=== PATIENT | female | born 1980 | race African-American/Black ===

== ENCOUNTER 2017-02-28 03:27 | Emergency (ER) | payer SELFPAY ==
[2017-02-28 03:33] VITALS: BP 137/76
[2017-02-28] MEDS ORDERED: PENICILLIN V POTASSIUM 500 MG TABLET PO ONE (03:57)
[2017-02-28] MEDS ORDERED: LIDOCAINE 2% VISCOUS SOLN 20 ML UDCUP PO ONE (03:57)
[2017-02-28] MEDS ORDERED: ACETAMINOPHEN 325 MG TABLET PO ONE (03:57)
--- NOTE | 2017-02-28 04:01 | ER Document Report ---
ED Oral Problem - General Chief Complaint: Toothache Stated Complaint: TOOTHACHE Time Seen by Provider: 02/28/17 03:41 Mode of Arrival: Ambulatory Information source: Patient Notes: 37-year-old female presents to ED for dental pain in the lower left jaw. Tooth #17 and 18 are broken off at the jawline and tooth #20 has a large cavity that is the tooth that she states is now hurting. She does have gingivitis around all 3 of these teeth in tooth #19 is missing. She states that she went to the dentist yesterday and they told her she can not have the tooth pulled because she was 12 weeks . She denies any fever. TRAVEL OUTSIDE OF THE [place] IN LAST 30 DAYS: No - HPI Patient complains to provider of: Jaw pain, Toothache Onset: Other - States the pain is been there for a while but she was to have it pulled yesterday but the dentist refused. 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 Lives with: Family - Her 5 children oldest of which is 16 youngest which is 10 Family History: DM, Malignancy Patient has suicidal ideation: No Patient has homicidal ideation: No - Past Medical History Cardiac Medical History: Reports: None Pulmonary Medical History: Reports: None EENT Medical History: Reports: None Neurological Medical History: Reports: None Endocrine Medical History: Reports: None Renal/ Medical History: Reports: None Malignancy Medical History: Reports: None GI Medical History: Reports: None Musculoskeltal Medical History: Reports None Skin Medical History: Reports None Psychiatric Medical History: Reports: None Traumatic Medical History: Reports: None Infectious Medical History: Reports: None Past Surgical History: Reports: Hx Section - Immunizations Hx Diphtheria, Pertussis, Tetanus Vaccination: Yes Review of Systems - Review of Systems Constitutional: No symptoms reported EENT: Mouth pain, Dental problem Cardiovascular: No symptoms reported Respiratory: No symptoms reported Gastrointestinal: No symptoms reported Genitourinary: No symptoms reported Female Genitourinary: No symptoms reported Musculoskeletal: No symptoms reported Skin: No symptoms reported Hematologic/Lymphatic: No symptoms reported Neurological/Psychological: No symptoms reported -: Yes All other systems reviewed and negative Physical Exam - Vital signs Vitals: Temp Pulse Resp BP Pulse Ox 98.6 F 82 18 137/76 H 100 02/28/17 03:02/28/17 03:02/28/17 03:02/28/17 03:02/28/17 03:29 Interpretation: Normal - General General appearance: Appears well, Alert - HEENT Head: Normocephalic, Atraumatic Eyes: Normal Pupils: PERRL Ears: Normal External canal: Normal Tympanic membrane: Normal Sinus: Normal Nasal: Normal Mouth/Lips: Caries Mucous membranes: Normal Teeth diagram: 1 - Tooth #17 and 18 of broken off at the jawline tooth #19 is missing tooth # 20 has a very large cavity with part of the tooth missing. Pharynx: Normal Neck: Normal - Respiratory Respiratory status: No respiratory distress Chest status: Nontender Breath sounds: Normal Chest palpation: Normal - Cardiovascular Rhythm: Regular Heart sounds: Normal auscultation Murmur: No - Abdominal Inspection: Normal Distension: No distension Bowel sounds: Normal Tenderness: Nontender Organomegaly: No organomegaly - Back Back: Normal, Nontender - Extremities General upper extremity: Normal inspection, Nontender, Normal color, Normal ROM , Normal temperature General lower extremity: Normal inspection, Nontender, Normal color, Normal ROM , Normal temperature, Normal weight bearing. No: Kathy's sign - Neurological Neuro grossly intact: Yes Cognition: Normal Orientation: AAOx4 Brayden Coma Scale Eye Opening: Spontaneous [place] Coma Scale Verbal: Oriented [place] Coma Scale Motor: Obeys Commands [place] Coma Scale Total: 15 Speech: Normal Motor strength normal: LUE, RUE, LLE, RLE Sensory: Normal - Psychological Associated symptoms: Normal affect, Normal mood - Skin Skin Temperature: Warm Skin Moisture: Dry Skin Color: Normal Course - Re-evaluation Re-evalutation: 02/28/17 04:43 Treated with Penicillin VK and viscous lidocaine and discharged home with prescription for Penicillin VK and instructed to follow-up with her EDUCATION REPORTER to find out why the dentist could not pull her tooth. - Vital Signs Vital signs: Temp Pulse Resp BP Pulse Ox 98.6 F 82 18 137/76 H 100 02/28/17 03:29 02/28/17 03:29 02/28/17 03:29 02/28/17 03:02/28/17 03:29 Discharge - Discharge Clinical Impression: Pain due to dental caries Condition: Stable Disposition: HOME, SELF-CARE Additional Instructions: TOOTHACHE: Your pain is due to dental decay. The tooth must be repaired in order for you to feel better. You will, therefore, be referred to a dentist. We do not have dentists on the staff at [facility]. Severe swelling or drainage around a tooth usually means a dental abscess. This also requires evaluation and treatment by the dentist, but antibiotics may be prescribed while awaiting dental treatment. You should be rechecked immediately if you develop major swelling of the face, increasing pain, a lump in the jaw or gums, headache, difficulty swallowing, or fever. PENICILLIN V K: You have been given a prescription for Penicillin VK. Your physician has determined that this is the best antibiotic for your condition. Pen VK can be taken with meals, however more of the antibiotic gets into the bloodstream if it's taken on an empty stomach. Penicillin usually has no side effects. However, allergy to penicillins is common. If you have had an allergic reaction to any drug of the penicillin family, you should never take any other penicillin. Notify your doctor at once if you develop hives, itching, swelling, faintness, or shortness of breath. Use lidocaine as explained to you every 4 hours for pain. Call your EDUCATION REPORTER on Thursday to find out if there is a reason why your tooth cannot be pulled by a dentist while you are . They state there is no reason to follow-up with the dentist to get the tooth pulled. FOLLOW-UP CARE: You have been referred for follow-up care to the dentists listed below. Call the dentists office for an appointment as you were instructed or within the next two days. If you experience worsening or a significant change in your symptoms, notify the physician immediately or return to the Emergency Department at any time for re-evaluation. [facility] [address] [place], [place] Black mornings, by appointment [facility] [address] [place] [address] [facility] [address] [facility] [address] [facility] [address] [email or web address] [address] [place] [address] Thursday- 8:00am to 5:00 pm Will see patients from other [facility]. Charges based on income and family size and accepts Medicare, Medicaid, and Insurances Will pull molars [facility] [address] Hours of Operation 8:00 am - 4:30 pm weekdays The following dental offices accept Medicaid: [facility] Dr. Weber Dr. Lambert Dr. Otero Dr. Garcia Julian Schultz [place], and Guido oral surgery Dr. Hernandez ([place]) Dr. Alvarez ([place]) [facility] Drs. Wells and Fito ([place]) Dr. Ortega ([place]) [facility] Dr. Pichardo ([place]) Drs. Hennessy and ([place]) Medicaid Care Line Prescriptions: Penicillin V Potassium [Penicillin Vk 500 mg Tablet] 500 mg PO BID #20 tablet Forms: Elevated Blood Pressure, Smoking Cessation Education, Return to Work Referrals: GEREMIAS MIGUEL MD [Primary Care Provider] - Follow up as needed
== END 2017-02-28 04:14 | disposition home or self-care (01) ==
LOC: ER 03:27
DX: K02.9 Dental caries, unspecified (principal); K08.89 Other specified disorders of teeth and supporting structures; R68.84 Jaw pain
CPT/HCPCS: 99282; J3490

== ENCOUNTER → 2017-04-27 | Outpatient (CLI) | payer SELFPAY ==
--- NOTE | 2017-04-27 15:43 | RADIOLOGY REPORT (SQ) ---
EXAM DESCRIPTION: U/S OB 14+ TRNABD 1GES W/O DOP COMPLETED DATE/TIME: 04/27/2017 3:02 pm REASON FOR STUDY: ENCOUNTER FOR SUPERVISION OF OTHER NORMAL , SECOND TRIMESTER Z34.82 ENCO UNTER FOR SUPRVSN OF NORMAL , SECOND TRI COMPARISON: None. TECHNIQUE: Static and Dynamic grayscale imaging performed of gravid uterus using transabdominal appr oach. Additional selected color Doppler and spectral images recorded. All stored on PACS. LIMITATIONS: None. FINDINGS: EGA: 19 weeks 6 days RITA: 09/15/2017 EFW: 301 grams PERCENTILE: Not calculated ISAURO: Largest pocket 5.1 cm PLACENTA: Posterior, grade 1 with marginal previa. The inferior placental edge abuts the internal c ervical os. Recommend follow-up scanning sometime later in the 2nd trimester to exclude placenta pre via. PRESENTATION: Variable ANATOMY: HEART RATE: 152 beats per minute. FOUR CHAMBER HEART: Visualized. THREE VESSEL CORD: Yes. CORD INSERTION: Visualized. KIDNEYS AND BLADDER: Visualized. Appear normal. STOMACH: Visualized. Appears normal. SPINE: Normal as visualized. BRAIN AND LATERAL VENTRICLES: Visualized. Appear normal. OTHER: No other significant finding. MATERNAL ADNEXA: Maternal ovaries not visualized. CERVICAL LENGTH: 3.5 cm Closed. OTHER: No other significant finding. IMPRESSION: LIVING INTRAUTERINE . ESTIMATED GESTATIONAL AGE 19 weeks 6 days Low-lying posterior placenta abuts the internal cervical os. Recommend follow-up scanning sometime l ater in the 2nd trimester to exclude placenta previa Trimester of : Second trimester - 13 weeks 1 day to 27 weeks 6 days. TECHNICAL DOCUMENTATION: JOB ID: [id number] [employer]- All Rights Reserved
== END ==
LOC: RAD 14:15
PROVIDERS: ATTEND Nurse Practitioner Women's Health
DX: Z34.82 Encounter for supervision of other normal pregnancy, second trimester (principal)
CPT/HCPCS: 76805

== ENCOUNTER 2017-08-24 12:55 | Inpatient (IN) | payer MEDICAID ==
[2017-08-24] MEDS ORDERED: CITRIC ACID/SODIUM CITRATE ORAL SOLN 15 ML UDCUP ONE (13:41)
[2017-08-24] MEDS ORDERED: CEFAZOLIN 2 GM/D5W RTU 2 GM/50 ML RTUPB IV ONE (13:41)
[2017-08-24] MEDS ORDERED: OXYTOCIN/NORMAL SALINE 20 UNIT/1,000 ML RTUINJ ONE (13:51)
[2017-08-24] MEDS ORDERED: OXYTOCIN 10 UNIT/ML VIAL ONE (13:52)
[2017-08-24] MEDS ORDERED: FENTANYL CITRATE INJ/PF 100 MCG/2 ML AMPUL ONE ×2 (13:52→16:32)
[2017-08-24] MEDS ORDERED: EPHEDRINE SULFATE INJ 50 MG/1 ML AMPULE ONE (13:52)
[2017-08-24] MEDS ORDERED: MIDAZOLAM 2 MG/2 ML INJ ONE (13:53)
[2017-08-24] MEDS ORDERED: DIPHENHYDRAMINE HCL 50 MG/ML VIAL IV PRN (14:36)
[2017-08-24] MEDS ORDERED: MORPHINE SULFATE 10 MG/ML INJ IV PRN (14:36)
[2017-08-24] MEDS ORDERED: PROMETHAZINE HCL INJ 25 MG/1 ML VIAL IV PRN ×2 (14:36)
[2017-08-24] MEDS ORDERED: ONDANSETRON HCL INJ/PF 4 MG/2 ML SDV IV PRN (14:36)
[2017-08-24] MEDS ORDERED: MEPERIDINE HCL/PF INJ 25 MG/1 ML DISP.SYRIN IV PRN (14:36)
[2017-08-24] MEDS ORDERED: FENTANYL CITRATE INJ/PF 100 MCG/2 ML AMPUL IV PRN ×2 (14:36)
[2017-08-24] MEDS ORDERED: ONDANSETRON HCL INJ/PF 4 MG/2 ML SDV ONE (15:06)
[2017-08-24] MEDS ORDERED: DEXAMETHASONE SOD PHOSPHATE INJ 4 MG/1 ML VIAL ONE (15:06)
[2017-08-24] MEDS ORDERED: PHENYLEPHRINE HCL INJ/PF 10 MG/1 ML SDV ONE (15:06)
[2017-08-24] MEDS ORDERED: METOCLOPRAMIDE HCL INJ/PF 10 MG/2 ML SDV ONE (15:06)
[2017-08-24] MEDS ORDERED: KETOROLAC TROMETHAMINE 60 MG/2 ML SDV ONE (15:06)
[2017-08-24] MEDS ORDERED: ACETAMINOPHEN 100 ML IV ONE (15:07)
--- NOTE | 2017-08-24 15:29 | OPERATIVE REPORT E ---
Operative Report NAME: YVES NIELSON : 1980 AGE: 37Y DATE OF SURGERY: 08/24/2017 ROOM: LR200 PREOPERATIVE DIAGNOSES: 1. IUP at 37 weeks and 0 days. 2. Poor care. 3. Previous x2. 4. Nonreassuring heart tones. 5. Undesired fertility. 6. HIV positive. POSTOPERATIVE DIAGNOSES: 1. IUP at 37 weeks and 0 days. 2. Poor care. 3. Previous x2. 4. Nonreassuring heart tones. 5. Undesired fertility. 6. HIV positive. PROCEDURE: Low transverse hysterotomy section with [place] tubal ligation. SURGEON: DULCE EUBANKS M.D. ANESTHESIA: Dr. Mcclain with a spinal. FINDINGS: A female infant in cephalic presentation with Apgars of 6 and 8. Weight 5 pounds 1 ounce. COMPLICATIONS: None. ESTIMATED BLOOD LOSS: 600 mL. SPECIMENS REMOVED: Bilateral fallopian tubes. PROCEDURE IN DETAIL: The patient was taken to the operating room and prepared and draped in a normal sterile fashion in the supine position with a leftward tilt. A transverse skin incision was made with the scalpel and was carried through to the underlying layer of fascia with the same scalpel. The fascia was then dissected from the rectus muscle sharply. The rectus muscle was divided and the peritoneal cavity was entered bluntly with good visualization of the bladder and the uterus. The bladder blade was inserted and the hysterotomy was nicked with a scalpel and extended laterally with surgeon finger fracture. The infant was then delivered atraumatically. The nose and mouth were suctioned with a suction bulb and the cord was clamped and cut and the was handed off to awaiting pediatricians. Cord blood was collected. The placenta was removed manually. The uterus was exteriorized and cleared of clots and debris. The hysterotomy was closed with 0 Monocryl in a running-locked fashion and a second layer of the same suture was used in an imbricating fashion to ensure hemostasis. Attention was then turned to the fallopian tubes for the tubal ligation where the right fallopian tube was grasped with a Nikko and the mesosalpinx was divided. The section of fallopian tube measuring approximately 3 cm was tied off with 2 pieces of 2-0 chromic. The intermediate section was then transected with Metzenbaum and the pedicles were made hemostatic with the Bovie. This was repeated on the left fallopian tube without any difficulty. The uterus was then returned to the abdomen and the pedicles were reinspected and found to be hemostatic and intact. The rectus muscle and peritoneum were reapproximated with a mattress stitch of 2-0 chromic. The fascia was closed with 0 Vicryl. The subcutaneous layer was closed with plain catgut and the skin was closed with 4-0 Vicryl. Patient tolerated the procedure well. Sponge, lap, and needle counts were correct x2, and the patient was taken to recovery in stable condition. DICTATING PHYSICIAN: DULCE EUBANKS M.D. [id number] PHY#: [id number] ID: [id number] JOB#: [id number] ACCT: [id number] cc:DULCE EUBANKS M.D. >
[2017-08-24 16:06] LABS: APPEARANCE,URINE SLIGHTLY-CLOUDY; BILIRUBIN,URINE NEGATIVE (NEGATIVE); COLOR,URINE YELLOW; GLUCOSE, URINE NEGATIVE (NEGATIVE); KETONES,URINE NEGATIVE (NEGATIVE); LEUKOCYTE ESTERASE,URINE LARGE (NEGATIVE); NITRITE,URINE NEGATIVE (NEGATIVE); PROTEIN,URINE NEGATIVE (NEGATIVE); URINE SPECIFIC GRAVITY 1.013; UROBILINOGEN,URINE NEGATIVE mg/dL (<2.0)
[2017-08-24 16:12] LABS: URINE AMPHETAMINES SCREEN NEGATIVE; URINE BARBITURATES SCREEN NEGATIVE; URINE COCAINE SCREEN NEGATIVE; URINE MARIJUANA (THC) SCREEN NEGATIVE; URINE METHADONE SCREEN NEGATIVE; URINE PHENCYCLIDINE SCREEN NEGATIVE
[2017-08-24] MEDS ORDERED: NORMAL SALINE 250 ML IV PRN (16:14)
[2017-08-24 16:26] LABS: URINE BENZODIAZEPINES SCREEN NEGATIVE
[2017-08-24] MEDS: FENTANYL CITRATE INJ/PF 100 MCG/2 ML AMPUL IV PRN ×2 (16:36→16:58)
--- NOTE | 2017-08-24 17:10 | Admission Physical ---
Datetime Report Generated by CPN: 08/24/2017 17:10 CURRENT ADMISSION Chief Complaint: Uterine Contractions; Other Chief Complaint Other: SOB Indication for Induction: Not Applicable Indication for Induction: Term, Intrauterine ; Active Labor; Intact Membranes Admit Impression- Other: HIV+ Admit Plan: Admit to Unit ALLERGIES Medication Allergies: No Medication Allergies: No Known Allergies (08/24/2017) Latex: No Latex Allergies OBSTETRICAL HISTORY EDC: 09/14/2017 00:00 : 8 Para: 5 Term: 4 : 1 SAB: 0 IAB: 2 Ectopic: 0 Livin Cesareans: 2 VBACs: 0 Multiple Births: 0 Gestational Diabetes: No Rh Sensitization: No Incompetent Cervix: No SUZIE: No Infertility: No ART Treatment: No Uterine Anomaly: No IUGR: No Hx Previous C/S: Yes Macrosomia: No Hx Loss/Stillborn: No PIH: No Hx : No Placenta Previa/Abruption: Yes Depression/PP Depression: No PTL/PROM: No Post Hemorrhage: No Current Procedures: Ultrasound Obstetrical History Comments: 3 vaginal deliveries, 2 c/sections, 2 iebs, pt cannot remember dates SEE RECORDS Alcohol: No Marijuana : No Cocaine: No Other Illicit Drugs: No Cigarettes: Former Smoker. 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 Surgery: No Heart Disease: No Hosp/Surgery: Yes Autoimmune Disorder: No Anesthetic Complications: No Kidney Disease: No Abnormal Pap Smear: Yes Neuro/Epilepsy: No Psychiatric Disorders: No Other Medical Diseases: No Hepatitis/Liver Disease: No Significant Family History: No Varicosities/Phlebitis: No Trauma/Violence : No Thyroid Dysfunction: No Medical History Comments: , abnl paps INFECTIOUS HISTORY Gonorrhea: No Genital Herpes: No Chlamydia: No Tuberculosis: No Syphilis: No Hepatitis: No HIV/AIDS Exposure: Yes Rash or Viral Illness: No HPV: No PHYSICAL EXAM General: Normal HEENT: Deferred Neurologic: Deferred Thyroid: Normal Heart: Normal Lungs: Normal Breast: Deferred Back: Normal Abdomen: Normal Genitourinary Exam: Deferred Extremities: Deferred DTRs: Deferred Pelvic Type: Not Done Physical Exam Comments: Seen at [facility] for some care and Infectious Disease at [facility], seen by Care Team HIV +, taking anti viral everyday No records, states she is healthy Last viral load was normal Hx CS x 2 and 3 vaginal deliveries Vital Signs: Reviewed FETUS A EGA: 37.0 Monitoring: External US FHR- Baseline: 120 Variability: Minimal - Undetectable to <=5bpm Accelerations: Absent Decelerations: Late; Variable Admit Comment: Admited for emergency CS for Hx 2 C/S, + uc's, Pulse Ox 100%, intolerance + HIV, seen by Dr Bustos, POC discussed and pt consents, signed consents to get records from Care Team in [facility] BT NKA per pt Care Team notified to get records from [facility] and to call labor and delivery RANULFO Patient back for emergency C/S PLANS FOR LABOR AND DELIVERY Labor and Delivery: None Pain Management: Spinal Feeding Preference: Formula Benefit of Breast Feed Discussed: Yes Circumcision: N/A INFORMED CONSENT Assignment: An Horta MD Signature: with User ID: Michael : with User ID: Michael
[2017-08-24 17:21] LABS: MEAN CORPUSCULAR HEMOGLOBIN 34.6 pg (27.0-33.4); MEAN CORPUSCULAR HGB CONC 31.4 g/dL (32.0-36.0); MEAN CORPUSCULAR VOLUME 110 fl (80-97); PLATELET COUNT 234 10^3/uL (150-450); RED BLOOD COUNT 1.09 10^6/uL (3.72-5.28); RED CELL DISTRIBUTION WIDTH 20.3 % (11.5-14.0); WHITE BLOOD COUNT 19.9 10^3/uL (4.0-10.5)
[2017-08-24 17:31] LABS: HEMOGLOBIN 3.8 g/dL (12.0-15.5)
[2017-08-24 17:35] LABS: ABSOLUTE LYMPHOCYTES# (MANUAL) 1.4 10^3/uL (0.5-4.7); ABSOLUTE NEUTROPHILS# (MANUAL) 18.5 10^3/uL (1.7-8.2); BAND NEUTROPHILS % (MANUAL) 2 % (3-5); BASOPHILS % (MANUAL) 0 % (0-2); EOSINOPHILS % (MANUAL) 0 % (0-6); LYMPHOCYTES % (MANUAL) 7 % (13-45); MONOCYTES % (MANUAL) 0 % (3-13); NUCLEATED RED BLOOD CELLS 6 /100 WBC (0); SEGMENTED NEUTROPHILS % (MAN) 91 % (42-78); TOTAL CELLS COUNTED 100
[2017-08-24 17:37] LABS: ANISOCYTOSIS 2+; HYPOCHROMASIA SLIGHT; PLATELET COMMENT ADEQUATE; POLYCHROMASIA 1+
--- NOTE | 2017-08-24 17:41 | Delivery Summary ---
Del Sum A-C Datetime Report Generated by CPN: 08/24/2017 17:41 DELIVERY PERSONNEL DELIVERY PERSONNEL: [id number] Delivery Doctor:: An Horta MD Anesthesiologist:: Rell Mcclain MD PIG MACHINE OPERATOR:: Nunu Sanchez CRNA Labor and Delivery Nurse:: Ashlee Johns RNbuilding manager Nurse:: Rose Car RN Neonatal Nurse Practitioner:: ARTEM [place] Nursery Nurse:: Renée Simmons RN Javascript Developer/ASSISTANT MANAGER OF OPERATIONS: Kaylan [place] CST Javascript Developer/ASSISTANT MANAGER OF OPERATIONS: Denise Rodriges, ST Additional Personnel: : Alina Brantley RNC MATERNAL INFORMATION Delivery Anesthesia: Spinal Medications After Delivery: Pitocin Bolus-Please Comment; Pitocin Drip 20 Units/1000ml NSS Estimated Blood Loss (ml): 600 Maternal Complications: Other Other Maternal Complications: Maternal Tachycardia HIV+ LABOR SUMMARY EDC: 09/14/2017 00:00 No. Babies in Womb: 1 Attempted: No Labor Anesthesia: None LABOR INFORMATION Reason for Induction: Not Applicable Oxytocin: N/A Group B Beta Strep: unknown Antibiotics # of Doses: 0 Steroids Given: None Reason Steroids Not Administered: Not Applicable MEMBRANES Membranes Rupture Method: Artificial Rupture of Membranes: 08/24/2017 14:20 Length of Rupture (hr): 0.02 Amniotic Fluid Color: Clear Amniotic Fluid Amount: Moderate Amniotic Fluid Odor: Normal STAGES OF LABOR Stage 3 hr: 0 Stage 3 min: 1 VAGINAL DELIVERY Episiotomy: None Laceration #1: None Laceration Extension #1: N/A Sponge Count Correct: N/A CSECTION DELIVERY Primary Indication: Nonreassuring Status Secondary Indication: Repeat Elective CSection Urgency: Non-Scheduled CSection Incidence: Repeat Labor: No Labor Elective: Nonelective CSection Incision: Lower Uterine Transverse BABY A INFORMATION Delivery Date/Time: 08/24/2017 14:21 Method of Delivery: Born in Route : No : N/A Forceps: N/A Vacuum Extraction: N/A Shoulder Dystocia : No PRESENTATION/POSITION BABY A Presentation: Cephalic Cephalic Presentation: Vertex Breech Presentation: N/A PLACENTA INFORMATION BABY A Placenta Delivery Time : 08/24/2017 14:22 Placenta Method of Delivery: Manual Removal Placenta Status: Delivered SCORES BABY A Heart Rate 1 min: >100 bpm Resp Effort 1 min: Slow, Irregular Reflex Irritability 1 min: Cough or Sneeze or Pulls Away Muscle Tone 1 min: Some Flexion of Extremities Color 1 min: Blue/Pale Resuscitation Effort 1 min: Tactile Stimulation; Oxygen; PPV/NCPAP SCORE 1 MIN: 6 Heart Rate 5 min: >100 bpm Resp Effort 5 min: Good Cry Reflex Irritability 5 min: Cough or Sneeze or Pulls Away Muscle Tone 5 min: Some Flexion of Extremities Color 5 min: Body [place] View, Extremities Blue Resuscitation Effort 5 min: PPV/NCPAP SCORE 5 MIN: 8 Resuscitation Effort 10 min: N/A INFANT INFORMATION BABY A Gestational Age at Delivery: 37.0 Gestational Status: Early Term- 37- 38.6 Weeks Infant Outcome : Liveborn Infant Condition : Stable Sex: Female IDENTIFICATION BABY A Verification Date/Time: 08/24/2017 14:21 ID Band Number: [id number] Mother's Name Verified: Yes RN Verifying : SALIMA Fritz Additional Verifying Personnel: SALIMA Andres WEIGHT/LENGTH BABY A Birthweight (gm): 2310 Weight (lb): 5 Weight (oz): 1 Infant Length (in): 17.75 Infant Length (cm): 45.09 CORD INFORMATION BABY A No. Cord Vessels: 3 Nuchal Cord : N/A Cord Blood Taken: Yes-For Eval (Mom's Blood Type - or O+) Suction: Mouth; Nose ASSESSMENT BABY A Complications: Multiple Late Decels Physical Findings at Delivery: Within Normal Limits Infant Respirations: Sternal Retractions Outer Diameter Grinder/ALS Called : No Care By: Skip Simmons RN/Juan MCGILL Transferred To: NICU
[2017-08-24] MEDS ORDERED: DIPHENHYDRAMINE HCL 25 MG CAPSULE PO PRN (18:00)
[2017-08-24] MEDS ORDERED: FUROSEMIDE INJ/PF 20 MG/2 ML SDV IV PRN (18:00)
[2017-08-24] MEDS ORDERED: DIPHENHYDRAMINE HCL 25 MG CAPSULE ONE (18:05)
[2017-08-24 18:06] LABS: RUBELLA IGG ANTIBODY 5.42 IU/mL
[2017-08-24 18:09] LABS: RUBELLA INTERPRETATION NEGATIVE
--- NOTE | 2017-08-24 18:38 | EKG REPORT ---
SEVERITY:- ABNORMAL ECG - SINUS TACHYCARDIA LVH WITH SECONDARY REPOLARIZATION ABNORMALITY : Confirmed by: Gaviota Cobb 24-Aug-2017 18:37:52
[2017-08-24] MEDS ORDERED: OXYCODONE-ACETAMINOPHEN 5-325 MG TABLET PO PRN ×2 (22:10→22:11)
[2017-08-24] MEDS ORDERED: ACETAMINOPHEN INJ/PF 1000 MG/100 ML SDV IV ONE (22:15)
[2017-08-24] MEDS ORDERED: KETOROLAC TROMETHAMINE INJ/PF 30 MG/1 ML SDV IV ONE (22:15)
[2017-08-24] MEDS: MORPHINE SULFATE 10 MG/ML INJ IV PRN (22:38)
[2017-08-25] MEDS: MORPHINE SULFATE 10 MG/ML INJ IV PRN (02:57)
[2017-08-25] MEDS ORDERED: FUROSEMIDE INJ/PF 20 MG/2 ML SDV IV PRN (03:32)
[2017-08-25] MEDS: KETOROLAC TROMETHAMINE INJ/PF 30 MG/1 ML SDV IV SCH ×2 (06:30→13:13)
[2017-08-25 08:38] LABS: HEMATOCRIT 24.3 % (36.0-47.0); MEAN CORPUSCULAR HEMOGLOBIN 31.9 pg (27.0-33.4); MEAN CORPUSCULAR HGB CONC 33.7 g/dL (32.0-36.0); PLATELET COUNT 202 10^3/uL (150-450); RED BLOOD COUNT 2.57 10^6/uL (3.72-5.28); RED CELL DISTRIBUTION WIDTH 18.3 % (11.5-14.0)
--- NOTE | 2017-08-25 08:47 | PDOC PROGRESS REPORT ---
Subjective Progress Note for:: 08/25/17 Subjective:: pt states she feels better and is passing gas Reason For Visit: LABOR CHECK Physical Exam - Physical Exam Vital Signs: Temp Pulse Resp BP Pulse Ox 98.4 F 71 16 150/80 H 100 08/25/17 08:11 08/25/17 08:11 08/25/17 08:11 08/25/17 08:11 08/25/17 08:11 Intake & Output 08/24/17 08/25/17 08/26/17 06:59 06:59 06:59 Intake Total 2740 300 Output Total 2400 Balance 340 300 Weight 75 kg - Obstetrical Exam Fundal Height: u/u - u/2 Tender: Yes Adhexa: normal Result Laboratory Results: 08/24/17 08/24/17 08/24/17 13:21 15:40 15:40 WBC Cancelled RBC Cancelled Hgb Cancelled Hct Cancelled MCV Cancelled MCH Cancelled MCHC Cancelled RDW Cancelled Plt Count Cancelled Seg Neutrophils % Cancelled Lymphocytes % Cancelled Monocytes % Cancelled Eosinophils % Cancelled Basophils % Cancelled Absolute Neutrophils Cancelled Absolute Lymphocytes Cancelled Absolute Monocytes Cancelled Absolute Eosinophils Cancelled Absolute Basophils Cancelled Urine Color YELLOW Urine Appearance SLIGHTLY-CLOUDY Urine pH 5.0 Ur Specific [place] 1.013 Urine Protein NEGATIVE Urine Glucose (UA) NEGATIVE Urine Ketones NEGATIVE Urine Blood NEGATIVE Urine Nitrite NEGATIVE Ur Leukocyte Esterase LARGE H Urine WBC (Auto) 45 Urine RBC (Auto) 5 Blood Type B POSITIVE Antibody Screen NEGATIVE 08/24/17 16:55 WBC 19.9 H RBC 1.09 L Hgb 3.8 L* Hct 12.0 L* MCV 110 H MCH 34.6 H MCHC 31.4 L RDW 20.3 H Plt Count 234 Seg Neutrophils % Not Reportable Lymphocytes % Not Reportable Monocytes % Not Reportable Eosinophils % Not Reportable Basophils % Not Reportable Absolute Neutrophils Not Reportable Absolute Lymphocytes Not Reportable Absolute Monocytes Not Reportable Absolute Eosinophils Not Reportable Absolute Basophils Not Reportable Urine Color Urine Appearance Urine pH Ur Specific [place] Urine Protein Urine Glucose (UA) Urine Ketones Urine Blood Urine Nitrite Ur Leukocyte Esterase Urine WBC (Auto) Urine RBC (Auto) Blood Type Antibody Screen Assessment & Plan - Plan Summary Plan Summary: continue plan of management
[2017-08-25 08:58] LABS: HEMOGLOBIN 8.2 g/dL (12.0-15.5)
[2017-08-25 08:59] LABS: MEAN CORPUSCULAR VOLUME 94 fl (80-97); WHITE BLOOD COUNT 28.3 10^3/uL (4.0-10.5)
[2017-08-25] MEDS ORDERED: SIMETHICONE 80 MG TAB.CHEW PO PRN (09:24)
[2017-08-25] MEDS ORDERED: (PENDING PHARMACY ID) (Darunavir/Cobicistat [Prezcobix 800 Mg-150 Mg Tablet] 1 TAB) PO SCH (10:00)
[2017-08-25] MEDS ORDERED: EMTRICITABINE/TENOFOVIR 200-300 MG TABLET PO SCH (10:00)
[2017-08-25] MEDS: PRENATAL VITAMIN W DHA CAPSULE PO SCH (10:05)
[2017-08-25] MEDS: DOCUSATE SODIUM 100 MG CAPSULE PO SCH ×2 (10:06→17:31)
[2017-08-25] MEDS: EMTRICITABINE/TENOFOVIR 200-300 MG TABLET PO SCH (21:13)
[2017-08-25] MEDS: OXYCODONE-ACETAMINOPHEN 5-325 MG TABLET PO PRN (21:16)
[2017-08-25] MEDS: IBUPROFEN 800 MG TABLET PO SCH (23:22)
[2017-08-26] MEDS: OXYCODONE-ACETAMINOPHEN 5-325 MG TABLET PO PRN ×3 (05:09→21:42)
[2017-08-26] MEDS: IBUPROFEN 800 MG TABLET PO SCH ×3 (05:09→18:32)
[2017-08-26 08:42] LABS: HEPATITIS A AB IGM Negative (Negative); HEPATITIS B CORE AB IGM Negative (Negative); HEPATITS B SURFACE ANTIGEN Negative (Negative)
[2017-08-26] MEDS: PRENATAL VITAMIN W DHA CAPSULE PO SCH (09:14)
[2017-08-26] MEDS: DOCUSATE SODIUM 100 MG CAPSULE PO SCH ×2 (09:14→18:32)
[2017-08-26] MEDS ORDERED: SENNOSIDES/DOCUSATE 8.6-50 MG 1 EACH TABLET PO PRN (09:22)
[2017-08-26 10:19] LABS: HEMATOCRIT 19.5 % (36.0-47.0); MEAN CORPUSCULAR HEMOGLOBIN 31.3 pg (27.0-33.4); MEAN CORPUSCULAR HGB CONC 33.4 g/dL (32.0-36.0); MEAN CORPUSCULAR VOLUME 94 fl (80-97); PLATELET COUNT 206 10^3/uL (150-450); RED BLOOD COUNT 2.08 10^6/uL (3.72-5.28); WHITE BLOOD COUNT 20.7 10^3/uL (4.0-10.5)
[2017-08-26 10:28] LABS: HEMOGLOBIN 6.5 g/dL (12.0-15.5)
[2017-08-26 11:14] LABS: HEPATITIS C VIRUS ANTIBODY <0.1 s/co ratio (0.0-0.9)
--- NOTE | 2017-08-26 12:45 | PDOC PROGRESS REPORT ---
Subjective-OB Subjective: Post Delivery Day:2 37 year old G8 now P6 s/p repeat with BTL ppd2. Ambulating and voiding without difficulty. Reports she presented to L&D with chest pain and it is actually worsening today. Also states she her shortness of breath has improved and denies dizziness at this time. Last bowel movement 4 days ago. Denies any needs at this time Physical Exam (OB) Vital Signs: Temp Pulse Resp BP Pulse Ox 97.8 F 99 16 104/64 100 08/26/17 11:37 08/26/17 11:37 08/26/17 11:37 08/26/17 11:37 08/26/17 11:37 Intake & Output 08/25/17 08/26/17 08/27/17 06:59 06:59 06:59 Intake Total 2740 760 Output Total 2400 Balance 340 760 Weight 75 kg 60.5 kg - General General Appearance: Appears well In distress: None - PIH/Pre-Eclampsia Headache: Absent Epigastric Pain: No Visual Changes: No - Dressing Removed: No - op site Incision: Dressing Closure Type: opsite - Bilateral Tubal Ligation Dressing Removed: No - opsite Site: Dressing - Lochia Lochia Amount: Scant < 10 ml Lochia Color: Rubra/Red - Abdomen Description: Tender, Soft Hernia Present: No Fundal Description: Firm, Midline Describe if Not Midline: Left side of midline Fundal Height: u/u - u/2 - Respiratory Respiratory Status: No respiratory distress Chest Status: Pain on movement, Pain with deep breathing - Extremities Upper extremity: Normal inspection Lower extremities: Normal inspection - Neurological Cognition: Normal Orientation: AAOx4 - Psychological Associated symptoms: Normal affect, Normal mood Objective-Diagnostic Laboratory: 08/26/17 10:07 08/26/17 10:07 WBC 20.7 H RBC 2.08 L Hgb 6.5 L Hct 19.5 L MCV 94 MCH 31.3 MCHC 33.4 RDW 20.0 H Plt Count 206 Assessment and Plan(PN) - Assessment and Plan (1) HIV disease affecting Qualifiers: Trimester: unspecified trimester Qualified Code(s): O98.719 - Human immunodeficiency virus [HIV] disease complicating , unspecified trimester Is this a current diagnosis for this admission?: Yes Plan: continue precautions as discussed at admission per attending MD (2) Anemia affecting Qualifiers: Trimester: unspecified trimester Qualified Code(s): O99.019 - Anemia complicating , unspecified trimester Is this a current diagnosis for this admission?: Yes Plan: increase dietary iron and feso4. Received blood transfusion pp (3 units) but H/ H back to 6.5/19.5 [address] am. Discussed with Dr. Vela who has contacted hematology and consult placed. (3) Blood transfusion during current hospitalization Is this a current diagnosis for this admission?: Yes Plan: continue to monitor for additional need or reaction. (4) Tubal ligation status Is this a current diagnosis for this admission?: Yes Plan: routine pp care (5) Limited care Qualifiers: Trimester: unspecified trimester Qualified Code(s): O09.30 - Supervision of with insufficient care, unspecified trimester Is this a current diagnosis for this admission?: Yes Plan: delivered, discharge planning consult ordered. (6) Delivery by emergency caesarean section Is this a current diagnosis for this admission?: Yes Plan: routine pp care - Time Spent with Patient Time with patient: 15-25 minutes Medications reviewed and adjusted accordingly: Yes - Disposition Anticipated Discharge: Home Within: within 24 hours
[2017-08-26] MEDS ORDERED: NORMAL SALINE 250 ML IV PRN ×3 (12:46→14:09)
[2017-08-26] MEDS ORDERED: FUROSEMIDE INJ/PF 20 MG/2 ML SDV IV PRN (12:46)
[2017-08-26] MEDS ORDERED: NITROGLYCERIN 2.5 MG (0.1 MG/HR) PATCH.TD24 TD ONE (12:49)
--- NOTE | 2017-08-26 13:51 | PDOC CONSULTATION ---
Consultation Consult Date: 08/26/17 Consult reason:: Chest pain History of Present Illness Admission Date/PCP: 08/24/17 13:43 RYLAN RUSSELL NP Patient complains of: Chest pain History of Present Illness: YVES NIELSON is a 37 year old female who presented to the hospital Thursday complaining of chest pain and apparently in labor. Patient was taken to the OR and a was done. Patient was found at that time to have a hemoglobin of 3.8. Patient was transfused 3 units of blood. 8.2 Patient states she continues to have chest pain especially with activity. Is much better with rest. Patient states she has some associated lightheadedness but nothing else. Patient states she has never had chest pain before. Patient states that she does have a history of anemia and was on iron supplements while she was with her daughter . Patient does not recall her hemoglobin and being so low. Past Medical History Infectious Medical History: Reports: HIV Past Surgical History Past Surgical History: Reports: Section Social History Smoking Status: Former Smoker - Advance Directive Resuscitation Status: Full Code Family History Family History: DM, Malignancy Parental Family History Reviewed: No Children Family History Reviewed: No Sibling(s) Family History Reviewed.: No Medication/Allergy Home Medications: Darunavir/Cobicistat [Prezcobix 800 mg-150 mg Tablet] 1 tab PO DAILY 08/24/17 Emtricitabine/Tenofovir (Tdf) [Truvada 200 mg-300 mg Tablet] 1 each PO DAILY Vit,Calc76/Iron/Folic [Pnv 29-1 Tablet] 1 tab PO DAILY 08/24/17 Promethazine HCl [Phenergan 25 mg Tablet] 25 mg PO PRN PRN 08/24/17 Allergies/Adverse Reactions: No Known Allergies Allergy (Verified 08/24/17 15:40) Review of Systems Constitutional: ABSENT: chills, fever(s), headache(s), weight gain, weight loss Eyes: ABSENT: visual disturbances Ears: ABSENT: hearing changes Cardiovascular: PRESENT: chest pain. ABSENT: dyspnea on exertion, edema, orthropnea, palpitations Respiratory: ABSENT: cough, hemoptysis Gastrointestinal: ABSENT: abdominal pain, constipation, diarrhea, hematemesis, hematochezia, nausea, vomiting Genitourinary: ABSENT: dysuria, hematuria Musculoskeletal: ABSENT: joint swelling Integumentary: ABSENT: rash, wounds Neurological: PRESENT: other - lightheaded. ABSENT: abnormal gait, abnormal speech, confusion, dizziness, focal weakness, syncope Psychiatric: ABSENT: anxiety, depression, homidical ideation, suicidal ideation Endocrine: ABSENT: cold intolerance, heat intolerance, polydipsia, polyuria Hematologic/Lymphatic: ABSENT: easy bleeding, easy bruising Physical Exam Vital Signs: Temp Pulse Resp BP Pulse Ox 97.8 F 99 16 104/64 100 08/26/17 11:37 08/26/17 11:37 08/26/17 11:37 08/26/17 11:37 08/26/17 11:37 Intake & Output 08/25/17 08/26/17 08/27/17 06:59 06:59 06:59 Intake Total 2740 760 320 Output Total 2400 Balance 340 760 320 Weight 75 kg 60.5 kg General appearance: PRESENT: no acute distress, thin, well-developed, well- nourished Head exam: PRESENT: normocephalic Eye exam: PRESENT: conjunctiva pale, EOMI. ABSENT: scleral icterus Ear exam: PRESENT: normal external ear exam Mouth exam: PRESENT: moist, tongue midline Teeth exam: PRESENT: poor dentation Neck exam: ABSENT: carotid bruit, JVD, lymphadenopathy, thyromegaly Respiratory exam: PRESENT: clear to auscultation jonh. ABSENT: rales, rhonchi, wheezes Cardiovascular exam: PRESENT: RRR. ABSENT: diastolic murmur, rubs, systolic murmur Pulses: PRESENT: normal dorsalis pedis pul Vascular exam: PRESENT: normal capillary refill GI/Abdominal exam: PRESENT: normal bowel sounds, other - protuberant. ABSENT: distended, guarding, mass, organolmegaly, rebound, tenderness Rectal exam: PRESENT: deferred Extremities exam: PRESENT: full ROM. ABSENT: calf tenderness, clubbing, pedal edema Neurological exam: PRESENT: alert, awake, oriented to person, oriented to place , oriented to time, oriented to situation, CN II-XII grossly intact. ABSENT: motor sensory deficit Psychiatric exam: PRESENT: appropriate affect, normal mood. ABSENT: homicidal ideation, suicidal ideation Skin exam: PRESENT: dry, intact, warm. ABSENT: cyanosis, rash Results Laboratory Results: 08/26/17 10:07 08/26/17 10:07 WBC 20.7 H RBC 2.08 L Hgb 6.5 L Hct 19.5 L MCV 94 MCH 31.3 MCHC 33.4 RDW 20.0 H Plt Count 206 Assessment & Plan - Diagnosis (1) Chest pain Qualifiers: Chest pain type: unspecified Qualified Code(s): R07.9 - Chest pain, unspecified Is this a current diagnosis for this admission?: Yes Plan: She has chest pain most likely due to demand ischemia.. Patient hemoglobin was 3.8 she received 3 units of packed RBCs. Patient appropriately responded to the transfusion with increase of hemoglobin to 6.5. Patient still requires at least 2 more units of packed RBCs. She has no acute findings on EKG. Will given Nitropaste for vasodilation and to alleviate some of the symptoms until her transfusion is complete. I do not believe her chest pain is cardiac in nature however she may have demand ischemia due to her found anemia. (2) Murmur, cardiac Is this a current diagnosis for this admission?: Yes Plan: Patient has a systolic murmur. This is more pronounced now that patient is anemic. Will order cardiac echo. (3) Symptomatic anemia Is this a current diagnosis for this admission?: Yes Plan: Possibly iron deficient. Patient transfused 3 units and will receive 2 more units. Please note that her correction from 3.8-6.5 was appropriate the 8.2 was incorrect. Will transfuse 2 more units. There was some discussion with Dr. Vela in regards to possibly given patient iron infusion however patient is receiving an iron load with the 5 units of packed RBCs that she is being given. Hematology is being consulted make further recommendations. - Time Time Spent: 30 to 50 Minutes Anticipated discharge: Home - Inpatient Certification Medical Necessity: Need Close Monitoring Due to Risk of Patient Decompensation, Other - Patient with symptomatic anemia. Requiring more blood transfusions.
[2017-08-26] MEDS ORDERED: DIPHENHYDRAMINE HCL 25 MG CAPSULE PO PRN (14:09)
[2017-08-26] MEDS ORDERED: ACETAMINOPHEN 325 MG TABLET PO PRN (14:09)
[2017-08-26] MEDS ORDERED: DIPHENHYDRAMINE HCL 25 MG CAPSULE ONE (14:15)
[2017-08-26] MEDS ORDERED: ACETAMINOPHEN 325 MG TABLET ONE (14:15)
[2017-08-26 14:21] LABS: ABSOLUTE BASOPHILS # (AUTO) 0.1 10^3/uL (0.0-0.2); ABSOLUTE LYMPHOCYTES (AUTO) 2.2 10^3/uL (0.5-4.7); ABSOLUTE MONOCYTES (AUTO) 0.8 10^3/uL (0.1-1.4); ABSOLUTE NEUT (AUTO) 16.6 10^3/uL (1.7-8.2); ABSOLUTE RETICS # 0.266 10^6/uL (0.028-0.122); BASOPHILS % (AUTO) 0.6 % (0-2); EOSINOPHILS % (AUTO) 0.1 % (0-6); HEMATOCRIT 21.5 % (36.0-47.0); MEAN CORPUSCULAR HEMOGLOBIN 32.3 pg (27.0-33.4); MEAN CORPUSCULAR HGB CONC 34.3 g/dL (32.0-36.0); MEAN CORPUSCULAR VOLUME 94 fl (80-97); PLATELET COUNT 245 10^3/uL (150-450); RED BLOOD COUNT 2.28 10^6/uL (3.72-5.28); RED CELL DISTRIBUTION WIDTH 20.8 % (11.5-14.0); RETICULOCYTE COUNT (AUTO) 11.68 % (0.66-2.85); SEGMENTED NEUTROPHILS % (AUTO) 84.3 % (42-78); TOTAL CELLS COUNTED % (AUTO) 100 %; WHITE BLOOD COUNT 19.7 10^3/uL (4.0-10.5)
[2017-08-26 14:28] LABS: HEMOGLOBIN 7.4 g/dL (12.0-15.5)
[2017-08-26 14:52] LABS: ALANINE AMINOTRANSFERASE 18 U/L (9-52); ALBUMIN 2.8 g/dL (3.5-5.0); ALKALINE PHOSPHATASE 90 U/L (38-126); ANION GAP 8 (5-19); ASPARTATE AMINO TRANSFERASE 28 U/L (14-36); BILIRUBIN,DIRECT 0.2 mg/dL (0.0-0.4); BILIRUBIN,TOTAL 0.2 mg/dL (0.2-1.3); BLOOD UREA NITROGEN 53 mg/dL (7-20); CALCIUM 8.3 mg/dL (8.4-10.2); CARBON DIOXIDE 13 mmol/L (22-30); CHLORIDE 110 mmol/L (98-107); GLUCOSE 88 mg/dL (75-110); IRON(TIBC) 96.3 ug/dL (37-170); LDH 672 U/L (313-618); POTASSIUM 4.6 mmol/L (3.6-5.0); TOTAL PROTEIN 5.5 g/dL (6.3-8.2)
[2017-08-26 16:01] LABS: FOLATE > 20.00 ng/mL (>2.76)
[2017-08-26] MEDS ORDERED: ONDANSETRON HCL INJ/PF 4 MG/2 ML SDV ONE (17:50)
[2017-08-26] MEDS ORDERED: ONDANSETRON HCL INJ/PF 4 MG/2 ML SDV IV PRN (18:03)
[2017-08-26] MEDS: EMTRICITABINE/TENOFOVIR 200-300 MG TABLET PO SCH (21:44)
[2017-08-27] MEDS: IBUPROFEN 800 MG TABLET PO SCH ×5 (00:20→23:12)
[2017-08-27] MEDS: OXYCODONE-ACETAMINOPHEN 5-325 MG TABLET PO PRN ×3 (05:28→19:51)
[2017-08-27 06:08] LABS: ABSOLUTE LYMPHOCYTES (AUTO) 1.6 10^3/uL (0.5-4.7); ABSOLUTE MONOCYTES (AUTO) 0.5 10^3/uL (0.1-1.4); ABSOLUTE NEUT (AUTO) 11.7 10^3/uL (1.7-8.2); BASOPHILS % (AUTO) 0.3 % (0-2); EOSINOPHILS % (AUTO) 0.3 % (0-6); HEMATOCRIT 25.4 % (36.0-47.0); HEMOGLOBIN 8.5 g/dL (12.0-15.5); LYMPHOCYTES % (AUTO) 11.8 % (13-45); MEAN CORPUSCULAR HEMOGLOBIN 31.3 pg (27.0-33.4); MEAN CORPUSCULAR HGB CONC 33.5 g/dL (32.0-36.0); MEAN CORPUSCULAR VOLUME 94 fl (80-97); MONOCYTES % (AUTO) 3.4 % (3-13); PLATELET COUNT 193 10^3/uL (150-450); RED BLOOD COUNT 2.72 10^6/uL (3.72-5.28); RED CELL DISTRIBUTION WIDTH 17.7 % (11.5-14.0); SEGMENTED NEUTROPHILS % (AUTO) 84.2 % (42-78); TOTAL CELLS COUNTED % (AUTO) 100 %; WHITE BLOOD COUNT 13.9 10^3/uL (4.0-10.5)
--- NOTE | 2017-08-27 09:27 | PDOC CONSULTATION ---
Consultation Consult Date: 08/27/17 Consult reason:: Hematology Consultation was requested for anemia History of Present Illness Admission Date/PCP: 08/24/17 13:43 RYLAN RUSSELL NP History of Present Illness: Ms. Donis is a 37 year old female with a history of HIV who presented with chest pain and dyspnea during her Ninth . On admission , she was found to have a HGB of 3.8. She went to emergent C-sec and delivered a healthy baby girl. However, since delivery, she has receive 5 units pRBCs and continues to have anemia. Today, she states that she is very sleepy and groggy and not thinking straight. She is still having some dizziness and abdominal pain. She states that the blood transfusion made her feel worse. Past Medical History Hematology: Reports: Anemia - Iron deficiency during previous pregnancies. No prior transfusion. Infectious Medical History: Reports: HIV Past Surgical History Past Surgical History: Reports: Section - x3 Social History Information Source: Patient Lives with: Family - With her 6 children. She is single. Smoking Status: Former Smoker Cigarettes Packs Per Day: 10 - Since age 18 Last Time Smoked: yesterday Frequency of Alcohol Use: None - Advance Directive Resuscitation Status: Full Code Family History Family History: DM, Malignancy Family History: Maternal Grandmother with lung cancer. Parental Family History Reviewed: Yes - Mom age 44 of brain aneurism. Father still living with DM. Children Family History Reviewed: Yes - No history of anemia. Sibling(s) Family History Reviewed.: No Medication/Allergy Home Medications: Darunavir/Cobicistat [Prezcobix 800 mg-150 mg Tablet] 1 tab PO DAILY 08/24/17 Emtricitabine/Tenofovir (Tdf) [Truvada 200 mg-300 mg Tablet] 1 each PO DAILY Vit,Calc76/Iron/Folic [Pnv 29-1 Tablet] 1 tab PO DAILY 08/24/17 Promethazine HCl [Phenergan 25 mg Tablet] 25 mg PO PRN PRN 08/24/17 Allergies/Adverse Reactions: No Known Allergies Allergy (Verified 08/24/17 15:40) Review of Systems Constitutional: PRESENT: fatigue Eyes: ABSENT: visual disturbances Ears: ABSENT: hearing changes Nose, Mouth, and Throat: ABSENT: sore throat Cardiovascular: PRESENT: chest pain Respiratory: PRESENT: dyspnea Gastrointestinal: PRESENT: constipation Genitourinary: ABSENT: difficulty urinating, hematuria Musculoskeletal: ABSENT: joint swelling Integumentary: ABSENT: pruritus, rash Neurological: PRESENT: dizziness Psychiatric: ABSENT: anxiety, depression Hematologic/Lymphatic: ABSENT: easy bleeding Physical Exam Vital Signs: Temp Pulse Resp BP Pulse Ox 97.6 F 80 16 126/79 H 100 08/27/17 08:40 08/27/17 08:40 08/27/17 08:40 08/27/17 08:40 08/27/17 08:40 Intake & Output 08/26/17 08/27/17 08/28/17 06:59 06:59 06:59 Intake Total 760 995 Balance 760 995 Weight 60.5 kg General appearance: PRESENT: no acute distress Exam: 37 year old Well nourished, female. Head exam: PRESENT: atraumatic Eye exam: PRESENT: PERRLA Ear exam: PRESENT: normal external ear exam Mouth exam: PRESENT: moist, tongue midline Teeth exam: ABSENT: poor dentation Neck exam: ABSENT: JVD, tenderness Respiratory exam: PRESENT: clear to auscultation jonh, unlabored Cardiovascular exam: PRESENT: RRR, systolic murmur Pulses: PRESENT: +1 pedal pulses bilateral GI/Abdominal exam: PRESENT: soft, tenderness. ABSENT: rebound Extremities exam: ABSENT: pedal edema Musculoskeletal exam: PRESENT: ambulatory Neurological exam: PRESENT: alert, awake, oriented to person, oriented to place Psychiatric exam: PRESENT: appropriate affect Skin exam: PRESENT: normal color Results Laboratory Results: 08/27/17 05:22 08/26/17 14:00 08/24/17 08/26/17 08/26/17 15:40 10:07 14:00 WBC 20.7 H 19.7 H RBC 2.08 L 2.28 L Hgb 6.5 L 7.4 L Hct 19.5 L 21.5 L MCV 94 94 MCH 31.3 32.3 MCHC 33.4 34.3 RDW 20.0 H 20.8 H Plt Count 206 245 Seg Neutrophils % 84.3 H Lymphocytes % 11.0 L Monocytes % 4.0 Eosinophils % 0.1 Basophils % 0.6 Absolute Neutrophils 16.6 H Absolute Lymphocytes 2.2 Absolute Monocytes 0.8 Absolute Eosinophils 0.0 Absolute Basophils 0.1 Retic Count (auto) 11.68 H Absolute Retic 0.266 H Sodium Potassium Chloride Carbon Dioxide Anion Gap BUN Creatinine Est GFR ( Amer) Est GFR (Non-Af Amer) Glucose Calcium Iron TIBC % Saturation Ferritin Total Bilirubin AST ALT Alkaline Phosphatase Total Protein Albumin Vitamin B12 Folate Blood Type B POSITIVE Antibody Screen NEGATIVE 08/26/17 08/27/17 14:00 05:22 WBC 13.9 H RBC 2.72 L Hgb 8.5 L Hct 25.4 L MCV 94 MCH 31.3 MCHC 33.5 RDW 17.7 H Plt Count 193 Seg Neutrophils % 84.2 H Lymphocytes % 11.8 L Monocytes % 3.4 Eosinophils % 0.3 Basophils % 0.3 Absolute Neutrophils 11.7 H Absolute Lymphocytes 1.6 Absolute Monocytes 0.5 Absolute Eosinophils 0.0 Absolute Basophils 0.0 Retic Count (auto) Absolute Retic Sodium 131.0 L Potassium 4.6 Chloride 110 H Carbon Dioxide 13 L Anion Gap 8 BUN 53 H Creatinine 1.71 H Est GFR ( Amer) 41 L Est GFR (Non-Af Amer) 34 L Glucose 88 Calcium 8.3 L Iron 96.3 TIBC 463 H % Saturation 21 Ferritin 21.50 Total Bilirubin 0.2 AST 28 ALT 18 Alkaline Phosphatase 90 Total Protein 5.5 L Albumin 2.8 L Vitamin B12 326.0 Folate > 20.00 Blood Type Antibody Screen 08/26/17 14:00 Troponin I 0.088 Assessment & Plan - Diagnosis (1) Anemia Qualifiers: Hemolytic anemia type: acquired, 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 This is very common with a induced hemolytic anemia. I would hold off on any further transfusions. Consider starting steroids for further drop in HGB. I am awaiting Direct Taye test. I am unsure if this is a cold induced antibody, but it does not appear to be. Usually, these resolve after delivery. I will be happy to continue to follow with you. Please feel free to call with any questions. Thanks for this consult.
--- NOTE | 2017-08-27 09:31 | PDOC PROGRESS REPORT ---
Subjective-OB Subjective: Post Delivery Day: 37 year old. Denies any needs at this time Physical Exam (OB) Vital Signs: Temp Pulse Resp BP Pulse Ox 97.6 F 80 16 126/79 H 100 08/27/17 08:40 08/27/17 08:40 08/27/17 08:40 08/27/17 08:40 08/27/17 08:40 Intake & Output 08/26/17 08/27/17 08/28/17 06:59 06:59 06:59 Intake Total 760 995 Balance 760 995 Weight 60.5 kg - PIH/Pre-Eclampsia Headache: Absent Epigastric Pain: No Visual Changes: No - Dressing Removed: No - op site Incision: Dressing Closure Type: opsite - Bilateral Tubal Ligation Dressing Removed: No - opsite Site: Dressing - Lochia Lochia Amount: Scant < 10 ml Lochia Color: Serosa/Brown - Abdomen Description: Tender, Soft Hernia Present: No Bowel Sounds: Normoactive Flatus Presence: Present Stool: No Fundal Description: Firm Describe if Not Midline: Left side of midline Fundal Height: u/u - u/2 Objective-Diagnostic Laboratory: 08/27/17 05:22 08/26/17 14:00 08/24/17 08/26/17 08/26/17 15:40 10:07 14:00 WBC 20.7 H 19.7 H RBC 2.08 L 2.28 L Hgb 6.5 L 7.4 L Hct 19.5 L 21.5 L MCV 94 94 MCH 31.3 32.3 MCHC 33.4 34.3 RDW 20.0 H 20.8 H Plt Count 206 245 Seg Neutrophils % 84.3 H Lymphocytes % 11.0 L Monocytes % 4.0 Eosinophils % 0.1 Basophils % 0.6 Absolute Neutrophils 16.6 H Absolute Lymphocytes 2.2 Absolute Monocytes 0.8 Absolute Eosinophils 0.0 Absolute Basophils 0.1 Retic Count (auto) 11.68 H Absolute Retic 0.266 H Sodium Potassium Chloride Carbon Dioxide Anion Gap BUN Creatinine Est GFR ( Amer) Est GFR (Non-Af Amer) Glucose Calcium Iron TIBC % Saturation Ferritin Total Bilirubin AST ALT Alkaline Phosphatase Total Protein Albumin Vitamin B12 Folate Blood Type B POSITIVE Antibody Screen NEGATIVE 08/26/17 08/27/17 14:00 05:22 WBC 13.9 H RBC 2.72 L Hgb 8.5 L Hct 25.4 L MCV 94 MCH 31.3 MCHC 33.5 RDW 17.7 H Plt Count 193 Seg Neutrophils % 84.2 H Lymphocytes % 11.8 L Monocytes % 3.4 Eosinophils % 0.3 Basophils % 0.3 Absolute Neutrophils 11.7 H Absolute Lymphocytes 1.6 Absolute Monocytes 0.5 Absolute Eosinophils 0.0 Absolute Basophils 0.0 Retic Count (auto) Absolute Retic Sodium 131.0 L Potassium 4.6 Chloride 110 H Carbon Dioxide 13 L Anion Gap 8 BUN 53 H Creatinine 1.71 H Est GFR ( Amer) 41 L Est GFR (Non-Af Amer) 34 L Glucose 88 Calcium 8.3 L Iron 96.3 TIBC 463 H % Saturation 21 Ferritin 21.50 Total Bilirubin 0.2 AST 28 ALT 18 Alkaline Phosphatase 90 Total Protein 5.5 L Albumin 2.8 L Vitamin B12 326.0 Folate > 20.00 Blood Type Antibody Screen 08/26/17 14:00 Troponin I 0.088 Assessment and Plan(PN) - Time Spent with Patient Medications reviewed and adjusted accordingly: Yes - Disposition Anticipated Discharge: Home
[2017-08-27] MEDS: PRENATAL VITAMIN W DHA CAPSULE PO SCH (10:51)
[2017-08-27] MEDS: DOCUSATE SODIUM 100 MG CAPSULE PO SCH ×2 (10:52→17:30)
--- NOTE | 2017-08-27 15:35 | PDOC PROGRESS REPORT ---
Subjective Progress Note for:: 08/27/17 Subjective:: Hospitalist was consulted to evaluate this patient for chest pain. Patient was found to be severely anemic. She was also symptomatic as a result of her anemia. Patient states she feels better today. She still has a little chest pain but it is much better. Reason For Visit: LABOR CHECK Physical Exam Vital Signs: Temp Pulse Resp BP Pulse Ox 97.7 F 96 16 116/80 100 08/27/17 14:48 08/27/17 14:48 08/27/17 14:48 08/27/17 14:48 08/27/17 14:48 Intake & Output 08/26/17 08/27/17 08/28/17 06:59 06:59 06:59 Intake Total 760 995 Balance 760 995 Weight 60.5 kg General appearance: PRESENT: no acute distress, well-developed, well-nourished Head exam: PRESENT: atraumatic, normocephalic Eye exam: PRESENT: EOMI. ABSENT: scleral icterus Mouth exam: PRESENT: moist Neck exam: ABSENT: carotid bruit, JVD, lymphadenopathy, thyromegaly Respiratory exam: PRESENT: clear to auscultation jonh. ABSENT: rales, rhonchi, wheezes Cardiovascular exam: PRESENT: RRR, systolic murmur. ABSENT: diastolic murmur, rubs Pulses: PRESENT: normal dorsalis pedis pul Vascular exam: PRESENT: normal capillary refill GI/Abdominal exam: PRESENT: normal bowel sounds, soft. ABSENT: distended, guarding, mass, organolmegaly, rebound, tenderness Rectal exam: PRESENT: deferred Extremities exam: PRESENT: full ROM. ABSENT: calf tenderness, clubbing, pedal edema Neurological exam: PRESENT: alert, awake, oriented to person, oriented to place , oriented to time, oriented to situation, CN II-XII grossly intact. ABSENT: motor sensory deficit Psychiatric exam: PRESENT: appropriate affect, normal mood. ABSENT: homicidal ideation, suicidal ideation Skin exam: PRESENT: dry, intact, warm. ABSENT: cyanosis, rash Results Laboratory Results: 08/27/17 05:22 08/26/17 14:00 08/24/17 08/26/17 08/27/17 15:40 14:00 05:22 WBC 13.9 H RBC 2.72 L Hgb 8.5 L Hct 25.4 L MCV 94 MCH 31.3 MCHC 33.5 RDW 17.7 H Plt Count 193 Seg Neutrophils % 84.2 H Lymphocytes % 11.8 L Monocytes % 3.4 Eosinophils % 0.3 Basophils % 0.3 Absolute Neutrophils 11.7 H Absolute Lymphocytes 1.6 Absolute Monocytes 0.5 Absolute Eosinophils 0.0 Absolute Basophils 0.0 Sodium 131.0 L Potassium 4.6 Chloride 110 H Carbon Dioxide 13 L Anion Gap 8 BUN 53 H Creatinine 1.71 H Est GFR ( Amer) 41 L Est GFR (Non-Af Amer) 34 L Glucose 88 Calcium 8.3 L Iron 96.3 TIBC 463 H % Saturation 21 Ferritin 21.50 Total Bilirubin 0.2 AST 28 ALT 18 Alkaline Phosphatase 90 Total Protein 5.5 L Albumin 2.8 L Vitamin B12 326.0 Folate > 20.00 Blood Type B POSITIVE Antibody Screen NEGATIVE 08/26/17 14:00 Troponin I 0.088 Assessment & Plan - Diagnosis (1) Chest pain Qualifiers: Chest pain type: unspecified Qualified Code(s): R07.9 - Chest pain, unspecified Is this a current diagnosis for this admission?: Yes Plan: Chest pain improved. Patient with demand ischemia due to anemia. (2) Murmur, cardiac Is this a current diagnosis for this admission?: Yes Plan: Patient has a systolic murmur. This is more pronounced now that patient is anemic. Patient has been told that she has a murmur in the patient. She denies any shortness of breath currently or any other time in the past. (3) Symptomatic anemia Is this a current diagnosis for this admission?: Yes Plan: Patient iron deficient but may also have induced hemolytic anemia. Patient anemia improved with transfusion however oncology recommend not giving anymore blood. Patient to be treated with steroids instead. - Time Time Spent with patient: Less than 15 minutes Anticipated discharge: Home - Thank you for consulting the hospitalist to assist with the manangement managment of your patient.
[2017-08-27] MEDS: EMTRICITABINE/TENOFOVIR 200-300 MG TABLET PO SCH (22:00)
[2017-08-28] MEDS ORDERED: ONDANSETRON 4 MG TAB.RAPDIS PO PRN (02:37)
[2017-08-28] MEDS: OXYCODONE-ACETAMINOPHEN 5-325 MG TABLET PO PRN (02:40)
[2017-08-28] MEDS: IBUPROFEN 800 MG TABLET PO SCH ×2 (05:45→11:12)
[2017-08-28 07:21] LABS: ABSOLUTE EOSINOPHILS # (AUTO) 0.1 10^3/uL (0.0-0.6); ABSOLUTE LYMPHOCYTES (AUTO) 1.3 10^3/uL (0.5-4.7); ABSOLUTE MONOCYTES (AUTO) 0.5 10^3/uL (0.1-1.4); ABSOLUTE NEUT (AUTO) 8.6 10^3/uL (1.7-8.2); BASOPHILS % (AUTO) 0.2 % (0-2); EOSINOPHILS % (AUTO) 1.2 % (0-6); HEMATOCRIT 26.9 % (36.0-47.0); HEMOGLOBIN 9.2 g/dL (12.0-15.5); LYMPHOCYTES % (AUTO) 11.9 % (13-45); MEAN CORPUSCULAR HEMOGLOBIN 31.7 pg (27.0-33.4); MEAN CORPUSCULAR HGB CONC 34.2 g/dL (32.0-36.0); MEAN CORPUSCULAR VOLUME 93 fl (80-97); MONOCYTES % (AUTO) 4.4 % (3-13); PLATELET COUNT 223 10^3/uL (150-450); RED BLOOD COUNT 2.89 10^6/uL (3.72-5.28); RED CELL DISTRIBUTION WIDTH 17.3 % (11.5-14.0); SEGMENTED NEUTROPHILS % (AUTO) 82.3 % (42-78); TOTAL CELLS COUNTED % (AUTO) 100 %; WHITE BLOOD COUNT 10.5 10^3/uL (4.0-10.5)
--- NOTE | 2017-08-28 08:40 | PDOC PROGRESS REPORT ---
Subjective Progress Note for:: 08/28/17 Subjective:: Patient without complaints. Some abdominal cramping. Baby doing well. ROS: No Chest pain or dyspnea. Good appetite. Reason For Visit: LABOR CHECK Physical Exam Vital Signs: Temp Pulse Resp BP Pulse Ox 98.2 F 78 16 114/78 100 08/28/17 07:32 08/28/17 07:32 08/28/17 07:32 08/28/17 07:32 08/28/17 07:32 Intake & Output 08/27/17 08/28/17 08/29/17 06:59 06:59 06:59 Intake Total 995 Balance 995 General appearance: PRESENT: no acute distress, well-nourished Head exam: PRESENT: atraumatic Respiratory exam: PRESENT: clear to auscultation jonh, unlabored Cardiovascular exam: PRESENT: RRR, systolic murmur - Holosystolic radiates to neck and abdomen. GI/Abdominal exam: PRESENT: soft, tenderness Extremities exam: ABSENT: pedal edema Neurological exam: PRESENT: alert Results Laboratory Results: 08/28/17 06:30 08/26/17 14:00 08/28/17 06:30 WBC 10.5 RBC 2.89 L Hgb 9.2 L Hct 26.9 L MCV 93 MCH 31.7 MCHC 34.2 RDW 17.3 H Plt Count 223 Seg Neutrophils % 82.3 H Lymphocytes % 11.9 L Monocytes % 4.4 Eosinophils % 1.2 Basophils % 0.2 Absolute Neutrophils 8.6 H Absolute Lymphocytes 1.3 Absolute Monocytes 0.5 Absolute Eosinophils 0.1 Absolute Basophils 0.0 08/26/17 14:00 Troponin I 0.088 Assessment & Plan - Diagnosis (1) Anemia Qualifiers: Hemolytic anemia type: acquired, 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 Platelets remain normal. Her ferritin was still low. I will start FeSO4 325 mg PO BID. She should continue this as outpatient. I would like to see her in the office in 3-4 weeks to repeat CBC and ferritin and for further follow-up. Please call with any other questions.
[2017-08-28] MEDS ORDERED: FERROUS SULFATE 325 MG TABLET PO SCH (09:00)
--- NOTE | 2017-08-28 09:06 | PDOC PROGRESS REPORT ---
Subjective-OB Subjective: Post Delivery Day: 37 year old. Denies any needs at this time Doing better, ready to go home, voiding, ambulating, bottle feeding, passing gas , pain under control Physical Exam (OB) Vital Signs: Temp Pulse Resp BP Pulse Ox 98.2 F 78 16 114/78 100 08/28/17 07:32 08/28/17 07:32 08/28/17 07:32 08/28/17 07:32 08/28/17 07:32 Intake & Output 08/27/17 08/28/17 08/29/17 06:59 06:59 06:59 Intake Total 995 Balance 995 - PIH/Pre-Eclampsia DTR's: 2 + Clonus: Negative Headache: Absent Epigastric Pain: No Visual Changes: No - Dressing Removed: No - honeycomb dressing present Incision: Dressing Closure Type: opsite - Bilateral Tubal Ligation Dressing Removed: No - honeycomb dressing present Site: Dressing - Lochia Lochia Amount: Scant < 10 ml Lochia Color: Rubra/Red - Abdomen Description: Tender, Soft, Flat Hernia Present: No Fundal Description: Firm, Midline Describe if Not Midline: Left side of midline Fundal Height: u/u - u/2 Objective-Diagnostic Laboratory: 08/28/17 06:30 08/26/17 14:00 08/28/17 06:30 WBC 10.5 RBC 2.89 L Hgb 9.2 L Hct 26.9 L MCV 93 MCH 31.7 MCHC 34.2 RDW 17.3 H Plt Count 223 Seg Neutrophils % 82.3 H Lymphocytes % 11.9 L Monocytes % 4.4 Eosinophils % 1.2 Basophils % 0.2 Absolute Neutrophils 8.6 H Absolute Lymphocytes 1.3 Absolute Monocytes 0.5 Absolute Eosinophils 0.1 Absolute Basophils 0.0 08/26/17 14:00 Troponin I 0.088 Assessment and Plan(PN) - Assessment and Plan (1) Delivery by emergency caesarean section Is this a current diagnosis for this admission?: Yes (2) HIV disease affecting Qualifiers: Trimester: unspecified trimester Qualified Code(s): O98.719 - Human immunodeficiency virus [HIV] disease complicating , unspecified trimester Is this a current diagnosis for this admission?: Yes (3) Anemia affecting Qualifiers: Trimester: unspecified trimester Qualified Code(s): O99.019 - Anemia complicating , unspecified trimester Is this a current diagnosis for this admission?: Yes (4) Blood transfusion during current hospitalization Is this a current diagnosis for this admission?: Yes (5) Tubal ligation status Is this a current diagnosis for this admission?: Yes (6) Limited care Qualifiers: Trimester: unspecified trimester Qualified Code(s): O09.30 - Supervision of with insufficient care, unspecified trimester Is this a current diagnosis for this admission?: Yes - Time Spent with Patient Time with patient: Less than 15 minutes Medications reviewed and adjusted accordingly: Yes - Disposition Anticipated Discharge: Home - Thank you for consulting the hospitalist to assist with the manangement managment of your patient. Within: Other - home today
--- NOTE | 2017-08-28 09:11 | PDOC DISCHARGE SUMMARY ---
Final Diagnosis Discharge Date: 08/28/17 - Final Diagnosis (1) Delivery by emergency caesarean section Is this a current diagnosis for this admission?: Yes (2) HIV disease affecting Is this a current diagnosis for this admission?: Yes (3) Anemia affecting Is this a current diagnosis for this admission?: Yes (4) Blood transfusion during current hospitalization Is this a current diagnosis for this admission?: Yes (5) Tubal ligation status Is this a current diagnosis for this admission?: Yes (6) Limited care Is this a current diagnosis for this admission?: Yes Discharge Data - Discharge Medication Prescriptions: Oxycodone HCl/Acetaminophen [Percocet 5-325 mg Tablet] 1 tab PO Q4HP PRN #30 tablet PRN Reason: Ferrous Sulfate [Feosol 325 mg Tablet] 325 mg PO BIDPCBS #30 tablet Home Medications: Darunavir/Cobicistat [Prezcobix 800 mg-150 mg Tablet] 1 tab PO DAILY 08/24/17 Emtricitabine/Tenofovir (Tdf) [Truvada 200 mg-300 mg Tablet] 1 each PO DAILY Vit,Calc76/Iron/Folic [Pnv 29-1 Tablet] 1 tab PO DAILY 08/24/17 Promethazine HCl [Phenergan 25 mg Tablet] 25 mg PO PRN PRN 08/24/17 Darunavir/Cobicistat [Prezcobix 800 mg-150 mg Tablet] 1 tab PO .QHS 08/28/17 Emtricitabine/Tenofovir [Truvada Tablet] 1 tab PO QHS tablet 08/28/17 Ferrous Sulfate [Feosol 325 mg Tablet] 325 mg PO BIDPCBS #30 tablet 08/28/17 Oxycodone HCl/Acetaminophen [Percocet 5-325 mg Tablet] 1 tab PO Q4HP PRN #30 tablet 08/28/17 Vit/Dha [ Multi + Dha Capsule] 1 cap PO DAILY capsule Gestational Age: 37 Reason(s) for Admission: Ceasarean Section-Primary Procedures: Ultrasound Intrapartum Procedure(s): : Low Cervical, Transverse - [place] Data Baby 1 Female at 1 minute: 6 at 5 minutes: 8 Weight: 2.296 kg Home with Mother: Yes - unsure at this time Complications: Yes - mom with HIV - Diagnosis Test Laboratory: Temp Pulse Resp BP Pulse Ox 98.2 F 78 16 114/78 100 08/28/17 07:32 08/28/17 07:32 08/28/17 07:32 08/28/17 07:32 08/28/17 07:32 08/24/17 08/24/17 08/24/17 13:21 15:40 16:55 RBC Cancelled 1.09 L Hgb Cancelled 3.8 L* Hct Cancelled 12.0 L* Urine Opiates Screen NEGATIVE 08/25/17 08/26/17 08/26/17 08:26 10:07 14:00 RBC 2.57 L 2.08 L 2.28 L Hgb 8.2 L D 6.5 L 7.4 L Hct 24.3 L 19.5 L 21.5 L Urine Opiates Screen 08/27/17 08/28/17 05:22 06:30 RBC 2.72 L 2.89 L Hgb 8.5 L 9.2 L Hct 25.4 L 26.9 L Urine Opiates Screen - Discharge information/Instructions Discharge Activity: Activity As Tolerated, No Lifting Over 10 Pounds, No Lifting /Push/Pulling, Pelvic Rest Discharge Diet: As Tolerated Disposition: HOME, SELF-CARE Follow up with: [facility] in: 1, Weeks
[2017-08-28] MEDS: PRENATAL VITAMIN W DHA CAPSULE PO SCH (09:37)
[2017-08-28] MEDS: DOCUSATE SODIUM 100 MG CAPSULE PO SCH (09:38)
[2017-08-28 11:03] VITALS: BP 103/66
--- NOTE | 2017-08-28 19:43 | XCELERA REPORT ---
[address] [place] [address] Transthoracic Echocardiogram Report Name: YVES NIELSON Age: 37 yrs Gender: Female : 1980 Patient Status: Inpatient Patient Location: [address] [place], [place] [id number] Study Date: 08/28/2017 10:48 AM Height: 68 in Weight: 133 lb BSA: 1.7 m2 Procedure: A complete two-dimensional transthoracic echocardiogram was performed (2D, M-mode, spectral and color flow Doppler). The study was technically difficult with many images being suboptimal in quality. Reason For Study: chest pain Ordering Physician: VIDYA CHEN Performed By: Cierra Orta Interpretation Summary The left ventricular ejection fraction is normal. There is moderate to severe LVOT obstruction. There is no aortic valve stenosis There is a moderate amount of aortic regurgitation Doppler measurements suggest pseudonormalized left ventricular relaxation, which is associated with grade II/IV or mild to moderate diastolic dysfunction There is moderate concentric left ventricular hypertrophy. The left ventricle is grossly normal size. No regional wall motion abnormalities noted. The right ventricular systolic function is normal. The left atrium is mildly dilated. The right atrium is normal in size There is a mild amount of mitral regurgitation There is no mitral valve stenosis. No tricuspid regurgitation. There is no tricuspid stenosis. The pulmonic valve is not well visualized. The aortic root is not well visualized but is probably normal size. The inferior vena cava appeared normal and decreased < 50% with respiration (RAP 10-15 mmHg) Minimal pericardial effusion. MMode/2D Measurements & Calculations RVDd: 2.8 cm LVIDd: 4.6 cm FS: 44.9 % Ao root diam: 3.1 cm IVSd: 1.6 cm LVIDs: 2.5 cm EDV(Teich): 96.9 ml LVPWd: 1.6 cm ESV(Teich): 22.9 ml Ao root area: 7.7 cm2 EF(Teich): 76.3 % LA dimension: 4.3 cm LVOT diam: 1.9 cm LVOT area: 3.0 cm2 Doppler Measurements & Calculations MV E max mary anne: MV P1/2t max mary anne: Ao V2 max: AI max mary anne: 125.5 cm/sec 126.8 cm/sec 510.4 cm/sec 451.1 cm/sec MV A max mary anne: MV P1/2t: 53.2 msec Ao max PG: AI max P.6 cm/sec MVA(P1/2t): 4.1 cm2 104.2 mmHg 81.4 mmHg MV E/A: 0.88 MV dec slope: Ao V2 mean: AI dec slope: 698.7 cm/sec2 372.3 cm/sec 338.9 cm/sec2 Ao mean PG: AI P1/2t: 63.4 mmHg 389.8 msec Ao V2 VTI: 125.8 cm SATYA(I,D): 2.4 cm2 SATYA(V,D): 2.2 cm2 LV V1 max PG: SV(LVOT): 296.7 ml PA V2 max: 58.8 mmHg 129.6 cm/sec LV V1 mean PG: PA max P.6 mmHg 6.7 mmHg LV V1 max: 383.4 cm/sec LV V1 mean: 281.4 cm/sec LV V1 VTI: 100.1 cm Left Ventricle The left ventricle is grossly normal size. There is moderate concentric left ventricular hypertrophy. The left ventricular ejection fraction is normal. Doppler measurements suggest pseudonormalized left ventricular relaxation, which is associated with grade II/IV or mild to moderate diastolic dysfunction. No regional wall motion abnormalities noted. Right Ventricle The right ventricle is grossly normal size. There is normal right ventricular wall thickness. The right ventricular systolic function is normal. Atria The right atrium is normal in size. The left atrium is mildly dilated. Interarterial septum not well visualized and not well dopplered. Cannot comment on ASD/PFO presence. Mitral Valve The mitral valve is grossly normal. There is no mitral valve stenosis. There is a mild amount of mitral regurgitation. Aortic Valve The aortic valve opens well. The aortic valve is trileaflet. There is no aortic valve stenosis. There is moderate to severe LVOT obstruction. There is a moderate amount of aortic regurgitation. Tricuspid Valve The tricuspid valve is not well visualized, but is grossly normal. There is no tricuspid stenosis. No tricuspid regurgitation. Pulmonic Valve The pulmonic valve is not well visualized. Great Vessels The aortic root is not well visualized but is probably normal size. The inferior vena cava appeared normal and decreased < 50% with respiration (RAP 10-15 mmHg). Effusions Minimal pericardial effusion. : VIDYA CHEN Shyamal
[2017-08-30 08:43] LABS: HIV-1 RNA LOG10.. 1.301 (.); HIV-1 RNA PCR QUANT 20 copies/mL (.)
== END 2017-08-28 12:50 | disposition home or self-care (01) | DRG 765 ==
LOC: LC 12:55 → LR 13:43 → 2N 17:08
PROVIDERS: ADMIT Obstetrics & Gynecology; ATTEND Obstetrics & Gynecology
PROC: 10D00Z1 Extraction of Products of Conception, Low, Open Approach (ICD-10-PCS; principal; 2017-08-24)
PROC: 0UB70ZZ Excision of Bilateral Fallopian Tubes, Open Approach (ICD-10-PCS; 2017-08-24)
PROC: 30233N1 Transfusion of Nonautologous Red Blood Cells into Peripheral Vein, Percutaneous Approach (ICD-10-PCS; 2017-08-24)
PROC: 30233N1 Transfusion of Nonautologous Red Blood Cells into Peripheral Vein, Percutaneous Approach (ICD-10-PCS; 2017-08-25)
PROC: 30233N1 Transfusion of Nonautologous Red Blood Cells into Peripheral Vein, Percutaneous Approach (ICD-10-PCS; 2017-08-26)
DX: O76 Abnormality in fetal heart rate and rhythm complicating labor and delivery (principal); O98.72 Human immunodeficiency virus [HIV] disease complicating childbirth; D58.9 Hereditary hemolytic anemia, unspecified; Z30.2 Encounter for sterilization; Z3A.37 37 weeks gestation of pregnancy; Z37.0 Single live birth; Z21 Asymptomatic human immunodeficiency virus [HIV] infection status; O99.02 Anemia complicating childbirth; O34.211 Maternal care for low transverse scar from previous cesarean delivery
CPT/HCPCS: 1961; 36415; 36430; 80053; 80074; 80307; 81001; 82607; 82728; 82746; 83540; 83550; 83615; 84484; 85025; 85027; 85045; 86592; 86762; 86850; 86900; 86901; 86920; 87536; 88302; 93005; 93010; 93306; 94760; J0131; J0690; J1100; J1885; J1940; J2250; J2270; J2370; J2405; J2590; J2765; J3010; J3490; P9016; S0119